=== PATIENT | female | born 1980 | race Caucasian/White ===

== ENCOUNTER 2021-09-20 21:36 | Emergency (ER) | payer SELFPAY ==
[~2021-09-20 21:36] MED LIST: MUPI22OI30 TP; NITR100C6 PO
== END 2021-09-20 22:29 | disposition left against medical advice (07) ==
LOC: ER 21:38
DX: M79.646 Pain in unspecified finger(s) (principal); Z53.21 Procedure and treatment not carried out due to patient leaving prior to being seen by health care provider

== ENCOUNTER 2021-10-19 21:04 | Emergency (ER) | payer SELFPAY ==
[~2021-10-19] VITALS: Ht 162.6 cm; Wt 59.1 kg
[2021-10-19 21:07] VITALS: BP 131/78
== END 2021-10-19 22:19 | disposition left against medical advice (07) ==
LOC: ER 21:05
DX: R22.40 Localized swelling, mass and lump, unspecified lower limb (principal); Z53.21 Procedure and treatment not carried out due to patient leaving prior to being seen by health care provider

== ENCOUNTER 2021-10-29 05:24 | Emergency (ER) | payer SELFPAY ==
[~2021-10-29] VITALS: Ht 162.6 cm; Wt 59.1 kg
[2021-10-29 05:32] VITALS: BP 127/89
[2021-10-29] MEDS ORDERED: NO HOME MEDS (07:15)
[2021-10-29] MEDS ORDERED: mupirocin 2% ointment 22GM TP STA (07:17)
[2021-10-29] MEDS ORDERED: CLIN-97 PO (07:18)
== END 2021-10-29 07:46 | disposition home or self-care (01) ==
LOC: ER 05:26
DX: L97.821 Non-pressure chronic ulcer of other part of left lower leg limited to breakdown of skin (principal); F15.90 Other stimulant use, unspecified, uncomplicated; Z72.89 Other problems related to lifestyle; Z79.2 Long term (current) use of antibiotics
CPT/HCPCS: 99283

== ENCOUNTER 2023-10-04 16:27 | Emergency (ER) | payer OTHER ==
[~2023-10-04] VITALS: Ht 162.6 cm; Wt 63.2 kg
[~2023-10-04 16:27] MED LIST changes: +CLIN-97 PO; -MUPI22OI30 TP; -NITR100C6 PO; +NO HOME MEDS
[2023-10-04 16:30] VITALS: BP 129/86; PULSE 102; RESP 16; TEMP 98.6; O2SAT 98
== END 2023-10-04 18:26 | disposition left against medical advice (07) ==
LOC: ER 16:28
DX: A64 Unspecified sexually transmitted disease (principal); Z53.21 Procedure and treatment not carried out due to patient leaving prior to being seen by health care provider
CPT/HCPCS: 99281